=== PATIENT | female | born 1980 | race Asian ===

== ENCOUNTER 2021-04-30 12:33 | Emergency (ER) | payer SELFPAY ==
[~2021-04-30] VITALS: Ht 162.6 cm; Wt 59.1 kg
[2021-04-30] MEDS ORDERED: ALBU8HFA IH (12:43)
[2021-04-30] MEDS ORDERED: FEXO-23 PO (12:43)
[2021-04-30] MEDS ORDERED: DiphenhydrAMINE HCL 25 MG CAPSULE PO ONE (13:30)
[2021-04-30] MEDS ORDERED: PredniSONE 20 MG TABLET PO ONE (13:30)
[2021-04-30] MEDS ORDERED: ACETAMINOPHEN 500 MG TABLET PO ONE (13:45)
[2021-04-30 14:11] LABS: COVID AG,FIA SOURCE NASOPHARYNGEAL
[2021-04-30 14:33] VITALS: BP 114/82
[2021-04-30 14:45] LABS: INFLUENZA TYPE A NEGATIVE FOR TYPE A (NEGATIVE); INFLUENZA TYPE B NEGATIVE FOR TYPE B (NEGATIVE)
== END 2021-04-30 15:01 | disposition home or self-care (01) ==
LOC: EMS 12:35
DX: J02.9 Acute pharyngitis, unspecified (principal); T50.B95A Adverse effect of other viral vaccines, initial encounter; Z20.822 Contact with and (suspected) exposure to COVID-19; Z79.899 Other long term (current) drug therapy; Y92.89 Other specified places as the place of occurrence of the external cause
CPT/HCPCS: 71045; 81025; 87426; 87804; 93005; 99285; J7512

== ENCOUNTER 2023-06-02 16:33 | Emergency (ER) | payer OTHER ==
[~2023-06-02] VITALS: Ht 154.9 cm; Wt 63.6 kg
[~2023-06-02 16:33] MED LIST: ALBU18HF12 IH; FEXO-23 PO
[2023-06-02 20:30] VITALS: BP 127/68; PULSE 70; RESP 18; TEMP 98.3
[2023-06-02] MEDS ORDERED: AMOX-426 PO (22:25)
[2023-06-02] MEDS: PERTUSS(ACELL),DIPH,TET VAC/PF 0.5 ML SYRINGE IM. ONE (22:40)
[2023-06-02] MEDS: AMOX TR/POT CLAV 875 MG/125 MG TABLET PO ONE (22:40)
== END 2023-06-03 00:53 | disposition home or self-care (01) ==
LOC: EMS 16:35
DX: S61.252A Open bite of right middle finger without damage to nail, initial encounter (principal); S61.256A Open bite of right little finger without damage to nail, initial encounter; W54.0XXA Bitten by dog, initial encounter; Y93.89 Activity, other specified; Y92.89 Other specified places as the place of occurrence of the external cause; Y99.8 Other external cause status
CPT/HCPCS: 90471; 90715; 99283